=== PATIENT | male | born 1985 | race Two or more races ===

== ENCOUNTER 2017-01-06 12:22 | Emergency (ER) | payer MEDICAID ==
[~2017-01-06] VITALS: Ht 172.7 cm; Wt 70.0 kg
[2017-01-06] MEDS ORDERED: LIDOCAINE HCL 1%/EPI 1:200,000 30 ML VIAL MC ONE (12:45)
[2017-01-06] MEDS ORDERED: BACITRACIN ZINC OINT UDPKT TOP ONE (12:45)
[2017-01-06 12:47] VITALS: BP 114/76
== END 2017-01-06 13:50 | disposition home or self-care (01) ==
LOC: ER 12:30
DX: S01.01XA Laceration without foreign body of scalp, initial encounter (principal); W25.XXXA Contact with sharp glass, initial encounter; Y93.89 Activity, other specified; Y92.89 Other specified places as the place of occurrence of the external cause; Y99.8 Other external cause status
CPT/HCPCS: 12001; 99284; Z7610

== ENCOUNTER 2017-01-27 16:30 | Emergency (ER) | payer MEDICAID ==
[~2017-01-27] VITALS: Ht 175.3 cm; Wt 65.0 kg
[2017-01-28] MEDS ORDERED: BACITRACIN ZINC OINT UDPKT TOP ONE (03:30)
[2017-01-28 04:54] VITALS: BP 118/59
== END 2017-01-28 04:55 | disposition home or self-care (01) ==
LOC: ER 01-28 00:22
DX: Z48.02 Encounter for removal of sutures (principal)
CPT/HCPCS: 99282

== ENCOUNTER 2020-07-20 15:42 | Emergency (ER) | payer MEDICAID ==
[~2020-07-20] VITALS: Ht 172.7 cm; Wt 75.0 kg
[2020-07-20 16:17] VITALS: BP 152/65
== END 2020-07-20 19:36 | disposition home or self-care (01) ==
LOC: ER 15:42
DX: S02.40CA Maxillary fracture, right side, initial encounter for closed fracture (principal); X58.XXXA Exposure to other specified factors, initial encounter; Y93.67 Activity, basketball; Y92.89 Other specified places as the place of occurrence of the external cause; Y99.8 Other external cause status
CPT/HCPCS: 70486; 99284

== ENCOUNTER 2020-10-28 16:17 | Emergency (ER) | payer MEDICAID ==
[~2020-10-28] VITALS: Ht 172.7 cm; Wt 70.0 kg
[2020-10-28] MEDS ORDERED: LIDOCAINE HCL 1% 20ML VIAL (Pyxis) INJ INFIL ONE (17:15)
[2020-10-28] MEDS ORDERED: CEFTRIAXONE SODIUM 500 MG/VIAL IM ONE (17:15)
[2020-10-28] MEDS ORDERED: DOXY100C2 MT (17:18)
[2020-10-28 17:47] VITALS: BP 118/61
[2020-10-31 04:07] LABS: NEISSERIA GONORRHOEAE NAA Positive (Negative)
== END 2020-10-28 17:48 | disposition home or self-care (01) ==
LOC: ER 16:17
DX: A54.09 Other gonococcal infection of lower genitourinary tract (principal)
CPT/HCPCS: 87491; 87591; 96372; 99283; J0696; J3490; Z7610

== ENCOUNTER 2021-03-29 15:15 | Emergency (ER) | payer MEDICAID ==
[~2021-03-29] VITALS: Ht 172.7 cm; Wt 66.0 kg
[~2021-03-29 15:15] MED LIST: DOXY100C5 MT
[2021-03-29 18:21] VITALS: BP 116/82
== END 2021-03-29 18:22 | disposition home or self-care (01) ==
LOC: ER 15:15
DX: J06.9 Acute upper respiratory infection, unspecified (principal); Z20.822 Contact with and (suspected) exposure to COVID-19
CPT/HCPCS: 87426; 99283

== ENCOUNTER 2021-07-20 11:30 | Emergency (ER) | payer MEDICAID ==
[~2021-07-20] VITALS: Ht 172.7 cm; Wt 64.0 kg
[2021-07-20] MEDS ORDERED: NAPR-681 PO (11:51)
[2021-07-20] MEDS ORDERED: CYCL5TAB PO (11:51)
[2021-07-20 12:30] VITALS: BP 131/67
== END 2021-07-20 12:30 | disposition home or self-care (01) ==
LOC: ER 11:30
DX: S39.012A Strain of muscle, fascia and tendon of lower back, initial encounter (principal); M54.42 Lumbago with sciatica, left side; Z98.890 Other specified postprocedural states; X58.XXXA Exposure to other specified factors, initial encounter; Y93.67 Activity, basketball; Y92.89 Other specified places as the place of occurrence of the external cause
CPT/HCPCS: 99282

== ENCOUNTER 2024-05-08 14:36 | Emergency (ER) | payer MEDICAID ==
[~2024-05-08] VITALS: Ht 172.7 cm; Wt 68.0 kg
[~2024-05-08 14:36] MED LIST changes: +CYCL5TAB PO; +NAPR-681 PO
[2024-05-08 14:37] VITALS: BP 120/76; TEMP 98.7; O2SAT 100
[2024-05-08 14:40] VITALS: PULSE 68; RESP 18; O2SAT 99
== END 2024-05-08 14:52 | disposition home or self-care (01) ==
LOC: ER 14:36
DX: R07.89 Other chest pain (principal)
CPT/HCPCS: 71045; 93005; 99283

== ENCOUNTER 2024-10-25 20:15 | Emergency (ER) | payer MEDICAID ==
[~2024-10-25] VITALS: Ht 170.2 cm; Wt 66.0 kg
[~2024-10-25 20:15] MED LIST changes: -CYCL5TAB PO; +CYCL5TAB3 PO
[2024-10-25 20:51] VITALS: TEMP 36.9; O2SAT 100
[2024-10-25] MEDS ORDERED: KETO10TA2 MT (22:13)
[2024-10-25] MEDS ORDERED: CEPH500T MT (22:13)
[2024-10-25] MEDS ORDERED: SULF1TAB48 MT (22:13)
[2024-10-25] MEDS: KETOROLAC 30MG/ML VIAL IM ONE (23:00)
[2024-10-25] MEDS: PREDNISONE 20MG TABLET PO ONE (23:01)
[2024-10-25 23:06] VITALS: BP 118/78; PULSE 103; RESP 14; O2SAT 100
== END 2024-10-25 23:07 | disposition home or self-care (01) ==
LOC: ER 20:15
DX: L02.01 Cutaneous abscess of face (principal); Z79.899 Other long term (current) drug therapy; Z98.890 Other specified postprocedural states
CPT/HCPCS: 99283; 96372; J1885; J7512; 99285

== ENCOUNTER 2024-10-28 05:31 | Emergency (ER) | payer MEDICAID ==
[~2024-10-28] VITALS: Ht 175.3 cm; Wt 66.4 kg
[~2024-10-28 05:31] MED LIST changes: +CEPH500T MT; +KETO10TA2 MT; +SULF1TAB48 MT
[2024-10-28 05:38] VITALS: BP 136/82; RESP 16; TEMP 37.1; O2SAT 100
[2024-10-28 05:39] VITALS: PULSE 106; O2SAT 100
[2024-10-28] MEDS: HYDROCODONE/ACETAMINOPHEN 10/325MG TABLET PO ONE (09:56)
== END 2024-10-28 10:00 | disposition home or self-care (01) ==
LOC: ER 05:31
DX: L02.01 Cutaneous abscess of face (principal); Z79.899 Other long term (current) drug therapy
CPT/HCPCS: 10060; 99283; Z7610; A6449; 10061; 99284